=== PATIENT | female | born 1970 | race Caucasian/White ===

== ENCOUNTER 2022-11-28 14:15 | Outpatient (AMB) | payer OTHER, SELFPAY ==
--- NOTE | 2022-11-28 14:17 | MHC.OFFVIS ---
Intake Vital Signs 11/28/22 14:19 Height 5 ft 5 in Weight 196 lb 3.382 oz BMI 32.6 BP 124/74 Blood Pressure Location Lt brachial Position Sitting Pulse 82 Pulse Source Pulse Oximeter Pulse Oximetry (%) 96 Oxygen Delivery Method Room Air Intake Visit Reasons: chronic dry cough Intake Note: Pt reports getting a cough back in February 2022. She traveled to [facility] and when she returned home it started as a tickle in her throat. She saw her PCP and was given Flonase and antibiotics. Nothing was helping so she went onto steroids which helped for about two weeks but then it returned. They thought it could have been due to her stomach but again nothing helped. She saw an ENT and they said it was not sinus related, nothing in her ears, and cobbling of her throat.The cough is mainly dry but sometime she coughs up mucus but it is always clear. She completed a PFT 11/26/22. Residential Living Assistant Required: No Allergies No Known Allergies Allergy (Verified 11/28/22 14:27) HPI chronic dry cough HPI Details 52-year-old lady, nonsmoker, referred for evaluation of chronic cough that started approximately in of 2021. Patient describes her cough as intermittently productive of whitish sputum with significant paroxysms, but no changes with body position, time of day, or food intake. She has been tried on PPI, Symbicort, total course of antibiotics, and prednisone without significant improvement. Patient has also been evaluated by and ENT with laryngoscopy that only noted posterior pharyngeal cobblestoning. Patient has had pulmonary function test performed at [facility] to days prior to this appointment with no results available. Patient does have family history of lung cancer in her mother and grandmother; both were smokers. 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 She does have 2 dogs. [facility] Social History (Updated 11/28/22 @ 14:28 by Belkis Foote [facility]) Patient Tobacco Use Status: Never used Tobacco Review of Systems Const Denies daytime sleepiness, Denies excessive sweating, Denies fatigue, Denies fever(s), Denies lethargy, Denies malaise, Denies night sweats, Denies snoring and Denies weight loss Eyes Denies blurry vision and Denies itchy eyes ENT Denies nasal congestion, Denies post nasal drip, Denies sinus pain, Denies sinus pressure and Denies other ( Thrush) Card Denies chest pain, Denies pedal edema, Denies dyspnea, Denies orthopnea and Denies paroxysmal nocturnal dyspnea Resp Reports cough, Denies hemoptysis, Denies excessive phlegm production, Denies dyspnea, Denies snoring and Denies wheezing GI Denies abdominal pain and Denies heartburn Musc Denies myalgias, Denies arthralgias and Denies joint swelling Skin/Breast Denies rash Neuro Denies memory loss and Denies seizure-like activity Psych Denies abnormal sleep pattern, Denies anxiety and Denies memory loss Endo Denies excessive sweating, Denies fatigue and Denies heat intolerance Reed/Lymph Denies easy bruising Aller/Immun Denies itchy eyes, Denies seasonal rhinorrhea and Denies wheezing Physical Exam Vital Signs: Last Vital Signs Pulse 82 11/28/22 14:19 BP 124/74 11/28/22 14:19 Pulse Ox 96 11/28/22 14:19 Oxygen Delivery Method Room Air 11/28/22 14:19 BMI result Body Mass Index 32.6 Const General: no acute distress and alert Nutritional Appearance: not obese Orientation/consciousness: Other orientation findings ( oriented) HEENT Head: Yes atraumatic Eyes General: appearance normal, both eyes and all related structures Sclerae: sclerae normal EOM: EOMs intact bilaterally Neck Neck: Yes supple Lymphatic: no lymphadenopathy noted Resp Effort & Inspection: normal respiratory effort and no use of accessory muscles Auscultation: clear to auscultation bilaterally Cardio Rate: regular rate Rhythm: regular rhythm Heart sounds: no gallops, no murmurs and no rubs Skin General skin exam: other ( warm) Extrem General: No clubbing, No cyanosis and No edema Assessment & Plan Assessment & Plan (1) Environmental allergies: Code(s): Z91.09 - Other allergy status, other than to drugs and biological substances Plan: Will obtain IgE level, CBC with differential, and RAST panel for further evaluation. (2) Cough: Code(s): R05.9 - Cough, unspecified Plan: Unclear etiology at this time, may have allergic component. Will await PFT and RAST results. (3) ILD (interstitial lung disease): Code(s): J84.9 - Interstitial pulmonary disease, unspecified Plan: Will obtain CT chest for further evaluation. Orders: Orders Rast Allergen Today Z91.09 - Other allergy status, other than to drugs and biological substances CT chest wo IV con Today J84.9 - Interstitial pulmonary disease, unspecified Complete Blood Count Auto Diff Today Z91.09 - Other allergy status, other than to drugs and biological substances Coding Level of Care Code New Pt Level 4 (23374) Diagnoses Environmental allergies Z91.09 Cough R05.9 ILD (interstitial lung disease) J84.9
[2022-11-28 14:19] VITALS: BP 124/74; PULSE 82; O2SAT 96; BMI 32.6
== END 2022-11-28 14:41 | disposition home or self-care (01) ==
PROVIDERS: PCP Nurse Practitioner Primary Care; Visit Provider Internal Medicine Pulmonary Disease
DX: Z91.09 Other allergy status, other than to drugs and biological substances (principal); R05.9 Cough, unspecified; J84.9 Interstitial pulmonary disease, unspecified
CPT/HCPCS: 99204

== ENCOUNTER 2022-11-28 14:15 | Outpatient (REF) | payer OTHER, SELFPAY ==
[2022-11-28 15:04] LABS: MANUAL DIFF FLAG NO
[2022-11-28 15:28] LABS: Basophils Absolute Auto 0.1 X10*3/uL (0.0-0.2); Basophils Percent Auto 0.9 % (0-2); Eosinophils Absolute Auto 0.4 X10*3/uL (0.0-0.4); Eosinophils Percent Auto 6.6 % (0-4); Hematocrit 43.1 % (37.0-47.0); Hemoglobin 14.1 g/dl (12.0-16.0); Imm Gran Abs Auto 0.02 X10*3/uL (0.00-0.03); Imm Gran Pct Auto 0.3 % (0.0-0.4); Lymphocytes Percent Auto 29.4 % (20-40); Mean Corpuscular HGB Conc 32.7 g/dl (31.0-35.0); Mean Corpuscular Hemoglobin 29.6 pg (27.0-33.0); Mean Corpuscular Volume 90.4 fL (80.0-98.0); Mean Platelet Volume 8.9 fL (9.4-12.3); Monocytes Absolute Auto 0.5 X10*3/uL (0.1-1.2); Monocytes Percent Auto 6.9 % (2-11); Neutrophils Absolute Auto 3.7 x10*3/uL (2.0-8.3); Neutrophils Percent Auto 55.9 % (45-73); Platelet Count 316 X10*3/uL (160-400); Red Blood Count 4.77 X10*6/uL (4.20-5.50); Red Cell Distribution Width 12.7 % (11.0-16.0); White Blood Count 6.7 X10*3/uL (4.8-10.8)
== END 2022-11-28 14:16 | disposition home or self-care (01) ==
LOC: HO.LAB 14:15
PROVIDERS: PCP Nurse Practitioner Primary Care; Visit Provider Internal Medicine Pulmonary Disease
DX: R05.3 Chronic cough (principal); J84.9 Interstitial pulmonary disease, unspecified; Z91.09 Other allergy status, other than to drugs and biological substances
CPT/HCPCS: 36415; 82785; 85025; 86003

== ENCOUNTER 2022-12-07 10:56 | Outpatient (REF) | payer OTHER, SELFPAY ==
--- NOTE | ~2022-12-07 | CT_ITS ---
EXAMINATION: CT CHEST WITHOUT CONTRAST CLINICAL INFORMATION: Interstitial lung disease COMPARISON: Previous chest CT January 2020 and January 2019 TECHNIQUE: Multidetector volumetric CT imaging of the chest was done. Axial MIP volume rendering provided. Sagittal and coronal reformatted images were obtained. This CT examination was performed using dose optimization techniques as appropriate, variously including the following: *Automated exposure control *Adjustment of mA and/or kV according to patient size (this includes techniques or standardized protocols for targeted exams where dose is matched to indication/reason for exam; i.e. extremities or head) *Use of iterative reconstruction technique DLP: 169 mGy-cm FINDINGS: MANAGER BUSINESS INFORMATION: Unremarkable LUNGS: Right lower lobe nodules are stable, largest measuring 3 x 7 mm, peripheral or subpleural 1 x 4 mm and 3 mm nodules all seen axial image 131 series 11. Small 2 mm right upper lobe nodule axial image 60 series 11 and 2 mm peripheral or subpleural right lower lobe nodule adjacent to the fissure axial image 107 series that are stable. No new pulmonary nodules. No evidence of interstitial lung disease, emphysema or bronchiectasis. No endobronchial or endotracheal lesion. There is linear scarring or chronic subsegmental atelectasis seen in the left lower lobe, inferior segment of the lingula and medial segment of the right middle lobe that is similar to previous exams. MEDIASTINUM: The mediastinum is normal. CORONARY ARTERY CALCIFICATION: None visualized on this study. PLEURA: There is no pleural effusion. No pleural mass or thickening. AXILLA: No enlarged lymphadenopathy. 4 x 8 mm density right medial breast axial image 27 series 10 is similar to previous exams. Correlation with physical exam and mammogram findings recommended. UPPER ABDOMEN: Unremarkable. OSSEOUS STRUCTURES: Mild degenerative changes of the spine. CT/CT chest wo IV con IMPRESSION: Stable scarring or chronic subsegmental atelectasis. Stable small pulmonary nodules, largest in the right lower lobe. No additional imaging follow-up pulmonary nodules recommended given long-term stability from prior exams going back to January 2019. No evidence of interstitial lung disease. Stable 4 x 8 mm asymmetric density in the right medial breast from 2019 exam. Correlation with physical exam and mammogram recommended. Fleischner guidelines were followed.
== END 2022-12-07 10:57 | disposition home or self-care (01) ==
LOC: HO.CT 10:56
PROVIDERS: PCP Nurse Practitioner Primary Care; Visit Provider Internal Medicine Pulmonary Disease
DX: J84.9 Interstitial pulmonary disease, unspecified (principal)
CPT/HCPCS: 71250

== ENCOUNTER 2022-12-13 13:13 | Outpatient (AMB) | payer OTHER, SELFPAY ==
--- NOTE | 2022-12-13 13:21 | A.OFFVIS_ITS ---
Intake Vital Signs 12/13/22 13:22 Height 5 ft 5 in Weight 196 lb BMI 32.6 BP 112/72 Blood Pressure Location Rt brachial Position Sitting Pulse 86 Pulse Source Doppler Pulse Oximetry (%) 98 Oxygen Delivery Method Room Air Intake Visit Reasons: chronic dry cough Allergies No Known Allergies Allergy (Verified 12/13/22 13:22) HPI chronic dry cough HPI Details 52-year-old lady, nonsmoker, referred for evaluation of chronic cough that started approximately in of 2021.? Patient describes her cough as intermittently productive of whitish sputum with significant paroxysms, but no changes with body position, time of day, or food intake.? She has been tried on PPI, Symbicort, total course of antibiotics, and prednisone without significant improvement.? Patient has also been evaluated by and ENT with laryngoscopy that only noted posterior pharyngeal cobblestoning.? Patient has had pulmonary function test performed at [facility] to days prior to this appointment with no results available.? Patient does have family history of lung cancer in her mother and grandmother; both were smokers.? 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 She does have 2 dogs. ? After the last office visit patient has completed his CT chest that showed pulmonary nodule stable since 2019. She also has completed her laboratory testing that showed multiple environmental allergies. Her pulmonary function test from [facility] was reviewed and is essentially normal. Patient continues to complain of her cough that has a a waxing and waning pattern. [facility] Social History Patient Tobacco Use Status: Never used Tobacco Review of Systems Const Denies daytime sleepiness, Denies excessive sweating, Denies fatigue, Denies fever(s), Denies lethargy, Denies malaise, Denies night sweats, Denies snoring and Denies weight loss Eyes Denies blurry vision and Denies itchy eyes ENT Denies nasal congestion, Denies post nasal drip, Denies sinus pain, Denies sinus pressure and Denies other ( Thrush) Card Denies chest pain, Denies pedal edema, Denies dyspnea, Denies orthopnea and Denies paroxysmal nocturnal dyspnea Resp Reports cough, Denies hemoptysis, Denies excessive phlegm production, Denies dyspnea, Denies snoring and Denies wheezing GI Denies abdominal pain and Denies heartburn Musc Denies myalgias, Denies arthralgias and Denies joint swelling Skin/Breast Denies rash Neuro Denies memory loss and Denies seizure-like activity Psych Denies abnormal sleep pattern, Denies anxiety and Denies memory loss Endo Denies excessive sweating, Denies fatigue and Denies heat intolerance Reed/Lymph Denies easy bruising Aller/Immun Denies itchy eyes, Denies seasonal rhinorrhea and Denies wheezing Physical Exam Vital Signs: Last Vital Signs Pulse 86 12/13/22 13:22 BP 112/72 12/13/22 13:22 Pulse Ox 98 12/13/22 13:22 Oxygen Delivery Method Room Air 12/13/22 13:22 BMI result Body Mass Index 32.6 Const General: no acute distress and alert Nutritional Appearance: not obese Orientation/consciousness: Other orientation findings ( oriented) HEENT Head: Yes atraumatic Eyes General: appearance normal, both eyes and all related structures Sclerae: sclerae normal EOM: EOMs intact bilaterally Neck Neck: Yes supple Lymphatic: no lymphadenopathy noted Resp Effort & Inspection: normal respiratory effort and no use of accessory muscles Auscultation: clear to auscultation bilaterally Cardio Rate: regular rate Rhythm: regular rhythm Heart sounds: no gallops, no murmurs and no rubs Skin General skin exam: other ( warm) Extrem General: No clubbing, No cyanosis and No edema Assessment & Plan Assessment & Plan (1) Cough: Code(s): R05.9 - Cough, unspecified Plan: Cough variant allergic asthma. With poor response to prior trials of inhaled corticosteroids and long-acting beta agonist. Will request Fasenra approval. (2) Environmental allergies: Code(s): Z91.09 - Other allergy status, other than to drugs and biological substances Plan: Expect to improve on Fasenra. Coding Level of Care Code Est Pt Level 4 (79361) Diagnoses Cough R05.9 Environmental allergies Z91.09
[2022-12-13 13:22] VITALS: BP 112/72; PULSE 86; O2SAT 98; BMI 32.6
== END 2022-12-13 13:36 | disposition home or self-care (01) ==
PROVIDERS: PCP Nurse Practitioner Primary Care; Visit Provider Internal Medicine Pulmonary Disease
DX: R05.9 Cough, unspecified (principal); Z91.09 Other allergy status, other than to drugs and biological substances
CPT/HCPCS: 99214

== ENCOUNTER → 2022-12-13 13:13 | Outpatient (BNVA) | payer OTHER, SELFPAY | PROVIDERS: PCP Nurse Practitioner Primary Care; Visit Provider Internal Medicine Pulmonary Disease | DX: Z91.09 Other allergy status, other than to drugs and biological substances (principal); J84.9 Interstitial pulmonary disease, unspecified ==